=== PATIENT | female | born 1955 | race Caucasian/White ===

== ENCOUNTER 2023-04-25 10:49 | Outpatient (OUT) | payer MEDICARE, SELFPAY ==
--- NOTE | 2023-04-25 10:59 | ECG_ITS ---
[facility] Test Date: 2023-04-25 Pat Name: KARMEN WORKMAN Department: Room: - Gender: Female [employer] Sales [employer]: : 1955 Requested By: JOB GATES Order Number: [id number] Reading MD: HENRY MURCIA Measurements Intervals Paia Rate: 82 P: 43 MO: 216 QRS: 8 QRSD: 100 T: 51 QT: 408 QTc: 478 Interpretive Statements SINUS RHYTHM WITH FIRST DEGREE AV BLOCK WITH OCCASIONAL ECTOPIC PREMATURE COMPLEXES WARNING: DATA QUALITY MAY AFFECT INTERPRETATION No previous ECG available for comparison Electronically Signed On 04-25-2023 23:26:45 EST by HENRY MURCIA
[2023-04-25 12:26] LABS: Anion Gap 15.8; BUN Creatinine Ratio 16.7; Calcium 9.6 mg/dL (8.5-10.1); Carbon Dioxide 26.4 mmol/L (21.0-32.0); Chloride 100 mmol/L (98-107); Estimated GFR (African America >60 (>=60); Estimated GFR (Non-African Ame >60 (>=60); Glucose 242 mg/dL (74-106); Potassium 4.2 mmol/L (3.5-5.1); Sodium 138 mmol/L (136-145)
== END 2023-04-25 10:50 | disposition home or self-care (01) ==
PROVIDERS: Visit Provider Obstetrics & Gynecology
DX: Z01.810 Encounter for preprocedural cardiovascular examination (principal); Z01.812 Encounter for preprocedural laboratory examination; R93.89 Abnormal findings on diagnostic imaging of other specified body structures
CPT/HCPCS: 80048; 93005

== ENCOUNTER 2023-05-05 06:30 | Day surgery (SDC) | payer MEDICARE, SELFPAY ==
[2023-04-25 11:37] VITALS: BP 130/80; PULSE 83; RESP 20; TEMP 36.2; O2SAT 98; BMI 35.4
[2023-05-05] VITALS (9 sets, daily range): BP systolic 114–141; BP diastolic 60–79; PULSE 77–89; RESP 12–19; TEMP 35.4–36.7; O2SAT 95–99
--- OUTSIDE RECORDS SUMMARY | 2023-05-05 06:34 | XMS_ITS | CCD ---
Author Name Unknown Address [address] [place] [address] Organization [facility] Care Team Providers Care Java Software Developer Name Role Phone Keri Fields Unavailable JOB CHE Attending Unavailable JOB CHE Attending Unavailable KAYE HUNTER Attending Unavailable SHELDON RAHMAN Attending Unavailable SHELDON RAHMAN Referring Unavailable SHELDON RAHMAN Attending Unavailable Kaye Hunter DO Unavailable Kaye Hunter DO Primary Care Provider Medications Current Medications Medication Drug Class(es) Dates Sig (Normalized) Sig (Original) aspirin 81 mg chewable tablet (3 sources) Platelet Aggregation Inhibitor, Nonsteroidal Anti-inflammatory Drug aspirin 81 MG chewable tablet 1 (one) time each day at the same time. 0 Active atorvastatin 40 mg oral tablet (5 sources) HMG-CoA Reductase Inhibitor Start: 12-29-2022 atorvastatin (Lipitor) 40 MG tablet Indications: Mixed hyperlipidemia (CMS/HCC) TAKE 1 TABLET DAILY 90 tablet 3 12/29/2022 Active Atorvastatin Dread cium Active cephalexin 500 mg oral tablet (2 sources) Cephalosporin Antibacterial Start: 03-15-2021 take 1 tablet by mouth every twelve hours Cephalexin 500 MG 1 tablet Orally every 12 hrs for 10 day(s) Mar, Active cholecalciferol 0.05 mg oral tablet (3 sources) Vitamin D take 1 tablet by mouth in the morning cholecalciferol (Vitamin D-3) 50 MCG (1999 UT) tablet Take 2,000 Units by mouth in the morning. 0 Active clobetasol propionate 0.5 mg/ml topical cream (3 sources) Corticosteroid Start: 03-02-2023 clobetasol (Temovate) 0.05 % cream Indications: Vaginal irritation Apply topically 2 (two) times a day Use BID for 7 days and then every day for 1 week and then prn as needed 15 g 1 03/02/2023 Active Continuous Blood Gluc Consumer Loan Underwriter (FreeStyle Carlyn 14 Day [place]) device (3 sources) Start: 01-25-2023 End: 01-25-2024 Continuous Blood Gluc Consumer Loan Underwriter (FreeStyle Carlyn 14 Day [place]) device Indications: Type 2 diabetes mellitus with hyperglycemia, without long-term current use of insulin (CMS/HCC) 1 Device 6 (six) times a day. 1 each 1 01/25/2023 01/25/2024 Active Continuous Blood Gluc Sensor (FreeStyle Carlyn 14 Day Sensor) misc (3 sources) Start: 01-25-2023 End: 04-19-2023 Continuous Blood Gluc Sensor (FreeStyle Carlyn 14 Day Sensor) misc Indications: Type 2 diabetes mellitus with hyperglycemia, without long-term current use of insulin (CMS/HCC) 1 Device every 14 (fourteen) days. 6 each 3 01/25/2023 04/19/2023 Active 0.5 ml dulaglutide 1.5 mg/ml auto-injector (5 sources) GLP-1 Receptor Agonist inject 0.75 mg by subcutaneous injection every week dulaglutide (Trulicity) 0.75 MG/0.5ML solution pen-injector Inject 0.75 mg under the skin 1 (one) time per week. 0 Active Trulicity Active empagliflozin 25 mg oral tablet (3 sources) Sodium-Glucose Cotransporter 2 Inhibitor Start: 01-25-2023 End: 01-25-2024 take 1 tablet by mouth once daily empagliflozin (Jardiance) 25 MG Indications: Type 2 diabetes mellitus with hyperglycemia, without long-term current use of insulin (CMS/HCC) Take 1 tablet (25 mg) by mouth 1 (one) time each day at the same time. 100 tablet 3 01/25/2023 01/25/2024 Active empagliflozin / Linagliptin (2 sources) Dipeptidyl Peptidase 4 Inhibitor, Sodium-Glucose Cotransporter 2 Inhibitor Glyxambi Active glimepiride 4 mg oral tablet (5 sources) Sulfonylurea Start: 07-28-2022 glimepiride (Amaryl) 4 MG tablet Indications: Diabetes mellitus due to underlying condition with hyperglycemia, unspecified whether petroleum terminal plant operator insulin use ([facility]) TAKE 1 TABLET TWICE A DAY 180 tablet 3 07/28/2022 Active Glimepiride Acti ve hydroCHLOROthiazide 12.5 mg / telmisartan 40 mg oral tablet (3 sources) Thiazide Diuretic, Angiotensin 2 Receptor Dk Start: 01-13-2023 telmisartan-hydroCHLOROthiaz shirley (MIcarDIS HCT) 40-12.5 MG tablet Indications: Primary hypertension ([facility]) TAKE 1 TABLET DAILY 90 tablet 3 01/13/2023 Active metFORMIN hydrochloride 1000 mg oral tablet (5 sources) Biguanide Start: 08-16-2022 metFORMIN (Glucophage) 1000 MG tablet Indications: Type 2 diabetes mellitus with hyperglycemia, without long-term current use of insulin ([facility]) TAKE 1 TABLET TWICE A DAY 180 tablet 3 08/16/2022 Active metFORMIN HCl Ac tive Multiple Vitamin (multivitamin) tablet (3 sources) take 1 tablet by mouth in the morning Multiple Vitamin (multivitamin) tablet Take 1 tablet by mouth in the morning. 0 Active saccharomyces boulardii 250 mg oral capsule (3 sources) take 1 capsule by mouth in the morning saccharomyces boulardii (Florastor) 250 MG capsule Take 250 mg by mouth in the morning and 250 mg before bedtime. 0 Active semaglutide 7 mg oral tablet (4 sources) Start: 06-04-19 23 End: 01-25-20 24 take 1 tablet by mouth before mealtime semaglutide (Rybelsus) 7 MG tablet Indications: Type 2 diabetes mellitus with hyperglycemia, without long-term current use of insulin ([facility]) Take 1 tablet (7 mg) by mouth in the morning. Take before meals. 90 tablet 3 01/25/2023 01/25/2024 Active sertraline 100 mg oral tablet (6 sources) Serotonin Reuptake Inhibitor Start: 04-13-19 sertraline (Zoloft) 100 MG tablet Indications: Anxiety TAKE 1 TABLET DAILY 90 tablet 3 04/13/2023 Active End: 04-13-2023 take 1 tablet by mouth in the morning sertraline (Zoloft) 100 MG tablet Take 1 tablet by mouth in the morning. 0 04/13/2023 Discontinued Sertraline HCl A ctive Telmisartan-HCTZ (2 sources) Telmisartan-HCTZ Active Completed/Discontinued Medications Medication Drug Class(es) Dates Sig (Normalized) Sig (Original) ALPRAZolam 1 mg oral tablet (1 source) Benzodiazepine Start: 02-09-2023 End: 04-12-2023 take 1 tablet by mouth once ALPRAZolam (Xanax) 1 MG tablet Indications: Anxiety, generalized (CMS/HCC) Take 1 tablet (1 mg) by mouth 1 (one) time for 1 dose Please take medication 1 hour before procedure 1 tablet 0 02/09/2023 04/12/2023 Discontinued Problems Active Problems Problem Classification Problem Date Documented Date Episodic/Chronic Anxiety disorders (4 sources) Anxiety; Translations: [Anxiety disorder, unspecified] Onset: 01-25-2023 01-25-2023 Chronic Cataract (3 sources) Bilateral age-related nuclear cataracts; Translations: [Age-related nuclear cataract, bilateral] Onset: 01-25-2023 01-25-2023 Chronic Diabetes mellitus with complications (7 sources) Type 2 diabetes mellitus; Translations: [Type 2 diabetes mellitus with diabetic neuropathy, unspecified] Onset: 01-25-2023 01-25-2023 Chronic Disorders of lipid metabolism (3 sources) Mixed hyperlipidemia; Translations: [Mixed hyperlipidemia] Onset: 01-25-2023 01-25-2023 Chronic Esophageal disorders (3 sources) Gastroesophageal reflux disease; Translations: [Gastro-esophageal reflux disease without esophagitis] Onset: 01-25-2023 01-25-2023 Chronic Essential hypertension (3 sources) Essential hypertension; Translations: [Essential (primary) hypertension] Onset: 01-25-2023 01-25-2023 Chronic Immunity disorders (3 sources) Secondary immune deficiency disorder; Translations: [Immunodeficiency due to conditions classified elsewhere] Onset: 01-25-2023 01-25-2023 Chronic Menopausal disorders (4 sources) Postmenopausal bleeding; Translations: [Postmenopausal bleeding] Onset: 03-24-2023 04-12-2023 Chronic Mood disorders (3 sources) Recurrent major depression in partial remission; Translations: [Major depressive disorder, recurrent, in partial remission] Onset: 01-25-2023 01-25-2023 Chronic Nutritional deficiencies (3 sources) Vitamin D deficiency; Translations: [Vitamin D deficiency, unspecified] Onset: 01-25-2023 01-25-2023 Chronic Other female genital disorders (3 sources) Simple endometrial glandular hyperplasia without atypia; Translations: [Benign endometrial hyperplasia] Onset: 03-24-2023 03-24-2023 Chronic Other female genital disorders (3 sources) Polyp of cervix; Translations: [Polyp of cervix uteri] Onset: 03-24-2023 03-24-2023 Episodic Other nervous system disorders (3 sources) Peripheral nerve disease ; Translations: [Polyneuropathy, unspecified] Onset: 01-25-2023 01-25-2023 Chronic Other nutritional; endocrine; and metabolic disorders (3 sources) Metabolic syndrome X; Translations: [Metabolic syndrome] Onset: 01-25-2023 01-25-2023 Chronic Other nutritional; endocrine; and metabolic disorders (3 sources) Morbid obesity; Translations: [Morbid (severe) obesity due to excess calories] Onset: 01-25-2023 01-25-2023 Chronic Other screening for suspected conditions (not mental disorders or infectious disease) (4 sources) Endometrium thickened; Translations: [Abnormal findings on diagnostic imaging of other specified body structures] Onset: 03-24-2023 04-12-2023 Chronic Other skin disorders (3 sources) Alopecia; Translations: [Nonscarring hair loss, unspecified] Onset: 01-25-2023 01-25-2023 Episodic Other skin disorders (3 sources) Callosity; Translations: [Corns and callosities] Onset: 01-25-2023 01-25-2023 Episodic Residual codes; unclassified (3 sources) Obstructive sleep apnea syndrome; Translations: [Obstructive sleep apnea (adult) (pediatric)] Onset: 01-25-2023 01-25-2023 Chronic Residual codes; unclassified (3 sources) Patient non-compliant - refused intervention / support ; Translations: [Noncompliance by refusing intervention or support] Onset: 01-25-2023 01-25-2023 Episodic Residual codes; unclassified (3 sources) Noncompliance with dietary regimen; Translations: [Noncompliance of patient with dietary regimen] Onset: 01-25-2023 01-25-2023 Episodic Past or Other Problems Problem Classification Problem Date Documented Da te Episodic/Chronic Genitourinary symptoms and ill-defined conditions (1 source) Dysuria Onset: 03-15-2021 Resolved: 03-15-2021 Episodic Urinary tract infections (1 source) Acute cystitis with hematuria Onset: 03-15-2021 Resolved: 03-15-2021 Episodic Results Test Name Value Interpretation Reference Range Facility Cytology Cervical or vaginal smear or scraping [facility]on 02-08-2023 [facility] PELVIS TRANSVAGINALon US PELVIS TRANSVAGINAL EXAM: US PELVIS TRANSVAGINAL ] CLINICAL INDICATION: post menapausal bleeding. COMPARISON: None. TECHNIQUE: Transvaginal real-time grayscale sonographic images were obtained. Color Doppler was also performed. FINDINGS: The uterus is 5.0 x 5.2 x 3.3 cm. It is anteverted. The endometrial stripe is 8 mm thick. It contains an echogenic 6 x 3 x 4 mm focus and a trace amount of fluid. The right ovary is 1.4 x 1.2 x 1.3. It shows normal blood flow. The left ovary is 1.9 x 1.3 x 1.2. It shows normal blood flow. No significant pelvic free fluid. IMPRESSION: 8 mm endometrium, thickened for postmenopausal. It also contains a 6 mm possible polyp, but malignancy is not excluded. Gynecology referral recommended for potential biopsy. ELECTRONICALLY SIGNED BY: Dejon Vásquez MD Normal Not Available Urinalysis - DIPSTICKon Appearance (U) cloudy [facility] Other Bilirubin Ql (U) Negative [facility] Other Color (U) yellow [facility] Other Glucose Ql (U) Negative [facility] Other Hemoglobin Ql (U) [employer] Other Ketones Ql (U) Negative [facility] Other Leukocyte esterase Test strip Ql (U) [employer] Other Nitrite Ql (U) Negative [facility] Other pH (U) 6.0 [pH] [facility] Other Protein Ql (U) Negative [facility] Other Specific gravity (U) [Rel density] 1.020 [facility] Other Urobilinogen (U) [Mass/Vol] 0.2 mg/dL [facility] Other Urinalysis - DIPSTICK [facility] Other Urine Cultureon 03-15-2021 Urine Culture >100,000 [facility] Other Urine Culture <16 [facility] Other Urine Culture >16 [facility] Other Urine Culture <4 [facility] Other Urine Culture <2 [facility] Other Urine Culture <1 [facility] Other Urine Culture <0.5 [facility] Other Urine Culture <32 [facility] Other Urine Culture >8 [facility] Other Urine Culture <2/38 [facility] Other Bacteria identified Cx Nom (U) Reason for Exam Dysuria Urine Reason for Exam: Dysuria : Urine ORGANISM: Escherichia coli (O:ESCCOL) Wilcox Count >100,000 Aerobic SURYA Charge (NUC86) ------ SUSCEPTIBILITY ----- ORGANISM: O:ESCCOL ANTIBIOTIC INTERPRETATION SURYA Amikacin S <16 Ampicillin R >16 Ampicillin/Sulbacta m S <8/4 Aztreonam S <4 Cefazolin S <2 Cefepime S <2 Ceftazidime S <1 Ceftazidime/Avibact am S <8 Ceftriaxone S <1 Ciprofloxacin S <1 Ertapenem S <0.5 Gentamicin S <4 Levofloxacin S <2 Meropenem S <1 Nitrofurantoin S <32 Piperacillin/Tazoba ctam S <16 Tetracycline R >8 Tigecycline S <2 Tobramycin S <4 Trimethoprim/Sulfam ethoxazole S <2/38 S = SUSCEPTIBLE I = INTERMEDIATE R = RESISTANT BLANK = DATA NOT AVAILABLE, OR DRUG NOT ADVISABLE OR TESTED R* = RESISTANCE DUE TO EXTENDED SPECTRUM BETA-LACTAMASES ESBL = EXTENDED SPECTRUM BETA-LACTAMASE TFG = THYMIDINE-DEPENDENT STRAIN HU = BETA-LACTAMASE POSITIVE IB = INDUCIBLE BETA-LACTAMASE. APPEARS IN PLACE OF 'S' WITH SPECIES KNOWN TO POSSESS INDUCIBLE BETA-LACTAMASES. POTENTIALLY THEY MAY BECOME RESISTANT TO ALL B-LACTAM DRUGS. PERFORMED BY: [place] [address] PATHOLOGIST HIGH SCHOOL TUTOR MAGUI HODGES M.D. [facility] Comment on above: Performed By: #### C UU #### [address] Vital Signs Date Time Vital Sign Value Performing Clinician Facility 04-12-2023 13:47-0500 Body mass index (BMI) [Ratio] 33.66 kg/m2 Application Security DO Work Phone: [facility] 04-12-2023 13:47-0500 Body weight 100.43 kg Job Chinedu DO Work Phone: [facility] 04-12-2023 13:47-0500 Diastolic blood pressure 68 mm[Hg] Job Chinedu DO Work Phone: [facility] 04-12-2023 13:47-0500 Systolic blood pressure 100 mm[Hg] Job Chinedu DO Work Phone: [facility] 03-15-2021 10:10-0500 Body height 168.91 cm Keri Diamond Other [facility] Other 03-15-2021 10:10-0500 Body mass index (BMI) [Ratio] 39.74 kg/m2 Keri Ginty Other [facility] Other 03-15-2021 10:10-0500 Body temperature 98.4 [degF] Keri Ginty Other [facility] Other 03-15-2021 10:10-0500 Body weight 113.4 kg Keri Ginty Other [facility] Other 03-15-2021 10:10-0500 Diastolic blood pressure 69 mm[Hg] Keri Ginty Other [facility] Other 03-15-2021 10:10-0500 Respiratory rate 18 /min Keri Ginty Other [facility] Other 03-15-2021 10:10-0500 SaO2% (BldA) [Mass fraction] 98 % Keri Ginty Other [facility] Other 03-15-2021 10:10-0500 Systolic blood pressure 133 mm[Hg] Keri Ginty Other [facility] Other Encounters Encounter Date Encounter Type Care Provider Facility Start: 04-16-2023 Orders Only Adele cordova VERIFICATION SPECIALIST Work Phone: [facility] Comment on above: Type 2 diabetes carolyne itus with diabetic neuropathy, without long-term current use of insulin ([facility]) (Primary Dx) Start: 04-13-2023 Refill Kayecruz Hunter DO Work Phone: [facility] Comment on above: Anxiety (Primary Dx) Start: 04-12-2023 End: 04-12-2023 ambulatory JOB CHINEDU Not Available Start: 04-12-2023 End: 04-12-2023 Office outpatient visit 15 minutes Job Chinedu DO Work Phone: [facility] Comment on above: Pre-op evaluation; Endometrial thickening on ultrasound; Post-menopausal bleeding Start: 04-12-2023 End: 04-12-2023 Preprocedural examination done Job Che DO Work Phone: [facility] Start: 03-24-2023 End: 03-24-2023 ambulatory JOB CHE Not Available Start: 02-23-2023 End: 02-24-2023 ambulatory SHELDON RAHMAN Not Available Start: 02-07-2023 End: 02-08-2023 ambulatory SHELDON RAHMAN Not Available Start: 02-07-2023 End: 02-08-2023 ambulatory SHELDON HOWARDO Not Available Start: 01-25-2023 End: 01-25-2023 ambulatory KAYE HUNTER Not Available Start: 03-18-2021 End: 03-18-2021 ambulatory Keri Ginty Other [facility] Other Start: 03-18-2021 Telephone encounter Keri Ginty [facility] Start: 03-15-2021 End: 03-15-2021 ambulatory Keri Ginty Other [facility] Other Start: 03-15-2021 Office outpatient vi sit 15 minutes Keri Ginty [facility] Procedures Date Procedure Procedure Detail Performing Clinician Start: 02-08-2023 Cytp cerv/vag auto t hin layer prep mnl screen Sheldon Rahman CNM Work Phone: Start: 03-15-2021 Piperacillin/tazobactam Keri Ginty Other Plan of Treatment Date Care Activity Detail Author Start: 02-08-2024 Medicare Annual Well ness (AWV) Medicare Annual Wellness (AWV) [facility] Start: 06-06-2023 End: 06-06-2023 Patient encounter procedure 06/06/2023 8:00 AM EDT Office Visit [facility] [address] [place] [address] Adele Phillips NP [address] [place] [address] [facility] Start: 04-16-2023 End: 04-16-2024 Amylase [Enzymatic activity/volume] in Serum or Plasma Amylase Lab Routine Type 2 diabetes mellitus with diabetic neuropathy, without long-term current use of insulin ([facility]) Expected: 04/16/2023 (Approximate), Expires: 04/16/2024 [facility] Comment on above: Expected: 04/16/2023 (Approximate), Expires: 04/16/2024 Start: 04-16-2023 End: 04-16-2024 Comprehensive metabolic 2000 panel - Serum or Plasma Comprehensive metabolic panel Lab Routine Type 2 diabetes mellitus with diabetic neuropathy, without long-term current use of insulin ([facility]) Expected: 04/16/2023 (Approximate), Expires: 04/16/2024 [facility] Work Phone: Comment on above: Expected: 04/16/2023 (Approximate), Expires: 04/16/2024 Start: 04-16-2023 End: 04-16-2024 Hemoglobin A1c measurement [facility] Comment on above: Expected: 04/16/2023 (Approximate), Expires: 04/16/2024 Start: 04-16-2023 End: 04-16-2024 Lipase [Enzymatic activity/volume] in Serum or Plasma Lipase Lab Routine Type 2 diabetes mellitus with diabetic neuropathy, without long-term current use of insulin ([facility]) Expected: 04/16/2023 (Approximate), Expires: 04/16/2024 [facility] Comment on above: Expected: 04/16/2023 (Approximate), Expires: 04/16/2024 Start: 06-05-2020 Glaucoma screening Diabetes: R etinopathy Screening [facility] Start: 06-16-2019 Urine screening for protein Diabetes: Urine Protein Screening [facility] Start: 1997 Screening for malign ant neoplasm of breast Mammogram [facility] Start: 1957 Screening for malign ant neoplasm of colon [facility] Immunizations Immunization Date Immunization Notes Care Provider Anna weldon 12-24-2022 Influenza, High-dose Seasonal, Quadrivalent, Preservative Free Job Che DO Work Phone: [facility] 12-24-2022 Pneumococcal Conjuga te PCV 20 Job Chinedu DO Work Phone: [facility] 12-24-2022 RSV, recombinant, pr otein subunit RSVpreF, adjuvant reconstitu, 120mcg/0.5mL, PF (Arexvy) Job Chinedu DO Work Phone: [facility] 12-05-2021 Seasonal, quadrivale nt, recombinant, injectable influenza vaccine, preservative free Job Chinedu DO Work Phone: [facility] 01-13-2021 Seasonal, quadrivale nt, recombinant, injectable influenza vaccine, preservative free Job Chinedu DO Work Phone: [facility] 05-05-2019 zoster vaccine recombinant C orey Chinedu DO Work Phone: [facility] 12-20-2018 seasonal influenza, intradermal, preservative free Job Chinedu DO Work Phone: [facility] 11-29-2018 zoster vaccine recombinant C orey Chinedu DO Work Phone: [facility] 01-17-2017 seasonal influenza, intradermal, preservative free Job Chinedu DO Work Phone: [facility] 02-23-2016 influenza, injectabl e, quadrivalent, contains preservative Job Chinedu DO Work Phone: [facility] 01-22-2015 pneumococcal conjuga te vaccine, 13 valent Job Chinedu DO Work Phone: [facility] 01-18-2014 tetanus and diphther ia toxoids, adsorbed, preservative free, for adult use (5 Lf of tetanus toxoid and 2 Lf of diphtheria toxoid) Job Chinedu DO Work Phone: [facility] 03-07-2008 pneumococcal polysaccharide vaccine, 23 valent Job Chinedu DO Work Phone: [facility] Payers Date Payer Category Payer Medicare AETNA MEDICARE A DVANTAGE AETNA MEDICARE REPLACEMENT [id number] 2022-Present [address] [place] [address] [id number] 2022 Medicare [id number] 1955 Unknown [id number] 1957 Unknown [id number] 1957 Unknown [id number] 1957 Unknown [id number] 1957 Unknown [id number] 1957 Unknown [id number] Private Health Insurance [id number] Social History Date Type Detail Facility Unknown if ever smoked [facility] Other Start: 01-23-2023 End: 01-25-2023 Sex Assigned At [facility] Start: 01-25-2023 Tobacco smoking status COIS Never smoked tobacco [facility] Start: 01-25-2023 Tobacco use and exposure Smokeless tobacco non-user [facility] Start: 04-12-2023 Alcohol intake Current drinker of alcohol (finding) [facility] Start: 01-23-2023 End: 01-25-2023 History of Social function [facility] Within the last year , have you been afraid of your partner or ex-partner? No [facility] Do you belong to any clubs or organizations such as anabaptism groups, unions, fraternal or athletic groups, or school groups? Yes [facility] Are you now , , , , never or living with a partner? [facility] How often to you hav e a drink containing alcohol? Never [facility] How many standard dr inks containing alcohol do you have on a typical day? Patient does not drink [facility] How hard is it for y ou to pay for the very basics like food, housing, medical care, and heating Not very hard [facility] Do you feel stress - tense, restless, nervous, or anxious, or unable to sleep at night because your mind is troubled all the time - these days [OSQ] Not at all [facility] (I/We) worried wheth er (my/our) food would run out before (I/we) got money to buy more. Never true [facility] Start: 01-23-2023 Alcohol Comment caffeine: 1-2 cups per day [facility] Start: 1955 Sex Assigned At Female [facility] Start: 01-22-2023 Gender identity Identifies as female gender (finding) [facility] Start: 01-22-2023 Sexual orientation Heterosexual (finding) [facility] History of Present illness Narrative 04-16-2023 Adele Phillips NP - 04/16/2023 10:02 AM EST Note Date & Type Note Facility 04-16-2023 History of Presen t illness Narrative Lab orders placed and endocronology referral placed per patient's request. documented in this encounter [facility] History of Present illness Narrative 04-12-2023 Sara Hamlin LPN - 04/12/2023 1:40 PM EST Note Date & Type Note Facility 04-12-2023 History of Presen t illness Narrative Reason for Appointment: Patient ID: Charu Iyer is a 68 y.o. female who presents for Pre-op Visit Patient presents today for a Pre Op appointment. Patient is scheduled to undergo D&C Hysteroscopy, possible Myosure on 05/05/[address] Che at [facility]. Current Medications: has a current medication list which includes the following prescription(s): aspirin, atorvastatin, cholecalciferol, clobetasol, freestyle carlyn 14 day reader, freestyle carlyn 14 day sensor, trulicity, empagliflozin, glimepiride, metformin, multivitamin, saccharomyces boulardii, semaglutide, sertraline, and telmisartan-hydrochlorothiazide. Medical History: Active Ambulatory Problems Diagnosis Date Noted Age-related nuclear cataract of both eyes 01/25/2023 Alopecia 01/25/2023 Anxiety 01/25/2023 Callus 01/25/2023 Essential hypertension ([facility]) 01/25/2023 Gastroesophageal reflux disease 01/25/2023 Immunodeficiency due to conditions classified elsewhere ([facility]) 01/25/2023 Metabolic syndrome 01/25/2023 Mixed hyperlipidemia ([facility]) 01/25/2023 Morbid obesity due to excess calories ([facility]) 01/25/2023 Noncompliance by refusing intervention or support 01/25/2023 Noncompliance of patient with dietary regimen 01/25/2023 Obstructive sleep apnea 01/25/2023 Peripheral neuropathy 01/25/2023 Recurrent major depressive disorder, in partial remission (HCC) ([facility]) 01/25/2023 Type 2 diabetes mellitus with diabetic neuropathy, without long-term current use of insulin ([facility]) 01/25/2023 Type 2 diabetes mellitus with hyperglycemia ([facility]) 01/25/2023 Vitamin D deficiency 01/25/2023 Endometrial hyperplasia without atypia, simple 03/24/2023 Endometrial thickening on ultrasound 03/24/2023 Post-menopausal bleeding 03/24/2023 Cervical polyp 03/24/2023 Resolved Ambulatory Problems Diagnosis Date Noted No Resolved Ambulatory Problems Past Medical History: Diagnosis Date Basal cell carcinoma of nose Bronchitis Cataract Chronic laryngotracheitis Chronic tracheobronchitis ([facility]) Depression with anxiety Diabetes mellitus, type 2 (CMS/HCC) GERD (gastroesophageal reflux disease) Hyperlipidemia, mixed (CMS/HCC) Hypertension (CMS/HCC) Lumbar disc disease Microalbuminuria Mononeuropathy Morbid obesity ([facility]) Urinary tract infection Family History Problem Relation Name Age of Onset Heart disease Mother Tamy Orlando Alcohol abuse Father Toi Orlando Glaucoma Father Toi Orlando Lymphoma Father Toi [place] Cancer Father Toi Orlando Other (bladder cancer) Sister Breast cancer Sister Hypothyroidism Sister Stroke Maternal Grandmother Diane Penn Social History Tobacco Use Smoking status: Never Smokeless tobacco: Never Substance Use Topics Alcohol use: Yes Comment: caffeine: 1-2 cups per day Drug use: Never Past Surgical History: Procedure Laterality Date CHOLECYSTECTOMY 2002 Lap Christine LUMBAR DISCECTOMY 1986 OTHER SURGICAL HISTORY 05/14/2015 [facility] chemosurgical excision of skin, nose, Dr. Castro, basal cell SPINE SURGERY 1985 - disk removed L5 TONSILLECTOMY 1968 No Known Allergies Review of Systems: Review of Systems Constitutional: Negative. HENT: Negative. Eyes: Negative. Respiratory: Negative. Cardiovascular: Negative. Gastrointestinal: Negative. Genitourinary: Positive for menstrual problem. Musculoskeletal: Negative. Skin: Negative. Neurological: Negative. All other systems reviewed and are negative. Hematological: Negative. Endocrine: Negative. Allergic/Immunologic: Negative. Objective Physical Exam Constitutional: Appearance: Normal appearance. She is well-developed. Cardiovascular: Rate and Rhythm: Normal rate and regular rhythm. Pulmonary: Effort: Pulmonary effort is normal. Breath sounds: Normal breath sounds. Abdominal: General: Bowel sounds are normal. There is no distension. Palpations: Abdomen is soft. Tenderness: There is no abdominal tenderness. There is no guarding or rebound. Musculoskeletal: General: No swelling. Normal range of motion. Right lower leg: No edema. Left lower leg: No edema. Neurological: Mental Status: She is alert and oriented to person, place, and time. Skin: General: Skin is warm and dry. Psychiatric: Mood and Affect: Mood normal. Behavior: Behavior normal. Vitals and nursing note reviewed. Exam conducted with a machinery rigger present. Vitals: Estimated body mass index is 33.66 kg/m as calculated from the following: Height as of 02/07/23: 5' 8 . Weight as of this encounter: 221 lb 6.4 oz. BP: 100/68 No LMP recorded. Patient is postmenopausal. Assessment/Plan Encounter Diagnoses Name Primary? Pre-op evaluation Endometrial thickening on ultrasound Post-menopausal bleeding Pre Op: Patient is doing well but has complaints of postmenopausal bleeding and thickening of endometrium on ultrasound. I have discussed conservative management vs. surgical management with the patient in detail and patient desires surgical management at this time. Patient will undergo D&C Hysteroscopy, possible Myosure on 05/05/23. Surgical consents were signed, mmc was reviewed, and patient is to proceed to [facility] OR. Follow Up: Patient is to follow up between 1-2 weeks post operative to assess proper healing and recovery from procedure. Documented by: Sara Hamlin LPN on behalf of Job Che DO documented in this encounter [facility] Evaluation note 03-15-2021 Note Date & Type Note Facility 03-15-2021 Evaluation note Encounter Date Diagnosis Assessment Notes Mar, Dysuria (ICD-10 - R30.0) Mar, Acute cystitis with hematuria (ICD-10 - N30.01) Discussed diagnosis and dipstick findings with patient. Will treat today for UTI. Reviewed recent antibiotic use and allergies. Advised to take antibiotic as directed, finish entire course, take with food and plenty of water. Advised patient that culture was sent today and we will call her with results in 2-5 days. Instructed patient to push fluids. If symptoms do not improve in next 48 hours, follow up with PCP. Immediate evaluation for back pain, fevers, n/v, or if any new or concerning symptoms arise. Patient verbalizes understanding and is agreeable with treatment plan [facility] Other Evaluation note Note Date & Type Note Facility Evaluation note No Information [facility] Other Evaluation note Note Date & Type Note Facility Evaluation note Diagnosis Pre-op evaluation Endometrial thickening on ultrasound Post-menopausal bleeding Postmenopausal bleeding documented in this encounter [facility] Evaluation note Note Date & Type Note Facility Evaluation note Diagnosis Anxiety- Primary Anxiety state, unspecified documented in this encounter [facility] Evaluation note Note Date & Type Note Facility Evaluation note Diagnosis Type 2 diabetes mellitus with diabetic neuropathy, without long-term current use of insulin ([facility])- Primary documented in this encounter [facility] Healthcare History general Narrative - Reported Note Date & Type Note Facility History general Narrative - Reported Type Medical History anxiety Medical History chronic depression Medical History hypercholesterolemia Medical History hypertension Medical History diabetes mallitus Surgical History tonsillectomy and adenoidectomy Surgical History cholecystectomy Surgical History back surgery Hospitalization History see above [facility] Other Reason for referral (narrative) Consultation (Urgent) - Pending Review Note Date & Type Note Facility Reason for referral (narrati ve) Specialty Diagnoses / Procedures Referred By Contac t Referred To Contact Endocrinology Diagnoses Type 2 diabetes mellitus with diabetic neuropathy, without long-term current use of insulin ([facility]) Procedures [place] OFFICE/OUTPATIENT NEW HIGH MDM 60 MINUTES Adele Phillisp NP [address] [place] [address] Barron Robb MD [address] [place] [address] Referral ID Status Reason Start Date Expiration Date Visits Requested Visits Authorized [id number] Pending Review Specialty Services Required 04/16/2023 10/13/2023 1 1 [facility] Summary Purpose Family History No Family History Records FoundNo Family History Records Found Advance Directives No Advanced Directives Records FoundNo Advanced Directives Records Found Additional Source Comments INFORMATION SOURCE (unrecogn ized section and content) DATE CREATED AUTHOR 04/29/2021 [facility] DATE CREATED AUTHOR AUTHOR'S ORGANIZ ATION 04/13/2023 [facility] Special[facility] EPIC REASON FOR VISIT (unrecogniz ed section and content) Reason Comments Med Refill Reason Comments Pre-op Visit [facility] Care Teams (unrecognized sec tion and content) Java Software Developer Relationship Specialty Start Date End Date Kaye Hunter DO [address] [place] [address] PCP - [employer] 05/05/22 Kaye Hunter DO [address] [place] [address] PCP - General Family Medicine 07/13/22 Java Software Developer Relationship Specialty Start Date End Date Kaye Hunter DO [address] [place] [address] PCP - [employer] 05/05/22 Kaye Hunter DO [address], [place] [phone] PCP - General Family Medicine 07/13/22 Java Software Developer Relationship Specialty Start Date End Date Kaye HunterDO [address] [place], [place] [id number] PCP - General Family Medicine 07/13/22 FOR RECORDS PERTAINING TO PATIENTS WHO ARE OR HAVE BEEN ENROLLED IN A CHEMICAL DEPENDENCY/SUBSTANCEABUSE PROGRAM, SOME INFORMATION MAY BE OMITTED. This clinical summary was aggregated from multiple sources. Caution should be exercised in using it in the provision of clinical care. This summary normalizes information from multiple sources, and as a consequence, information in this document may materially change the coding, format and clinical context of patient data. In addition, data may be omitted in some cases. CLINICAL DECISIONS SHOULD BE BASED ON THE PRIMARY CLINICAL RECORDS. [facility]. provides no warranty or guarantee of the accuracy or completeness of information in this document.
[2023-05-05 06:49] LABS: Basophils Percent Auto 0.6 % (0.2-2.0); Eosinophils Absolute Auto 0.2 10^3/uL (0.0-0.7); Eosinophils Percent Auto 2.2 % (0.9-7.0); Hematocrit 42.2 % (36.0-48.0); Hemoglobin 14.2 g/dL (12.0-16.0); Immature Granulocytes Abs Auto 0.03 10^3/uL (0.00-0.03); Immature Granulocytes Pct Auto 0.4 % (0.0-0.5); Lymphocytes Absolute Auto 1.9 10^3/uL (1.2-3.8); Lymphocytes Percent Auto 28.2 % (20.5-60.0); Mean Corpuscular HGB Conc 33.6 g/dL (29.9-35.2); Mean Corpuscular Hemoglobin 31.6 pg (26.7-34.0); Mean Corpuscular Volume 93.8 fL (81.0-99.0); Mean Platelet Volume 10.8 fL (9.5-13.5); Monocytes Absolute Auto 0.5 10^3/uL (0.3-0.8); Monocytes Percent Auto 7.6 % (1.7-12.0); Neutrophils Absolute Auto 4.2 10^3/uL (1.4-6.5); Platelet Count 168 10^3/uL (150-450); Red Cell Distribution Width 12.5 % (11.0-15.0); White Blood Count 6.9 10^3/uL (4.0-11.0)
[2023-05-05 06:56] LABS: Glucometer 390 mg/dL (74-106)
[2023-05-05] MEDS: LACTATED RINGER'S SOLUTION 1,000 ML 50 ML IV ×2 (07:26→09:01)
[2023-05-05] MEDS: INSULIN ASPART 300 UNIT/3 ML PEN 6 UNIT SUBQ (07:30)
--- NOTE | 2023-05-05 07:36 | PC.NURSE ---
Given 6 units insulin as ordered by anesthesia
--- NOTE | 2023-05-05 08:24 | P.ON_ITS ---
Brief Operative Note Date of procedure: 05/05/23 Pre-op diagnosis: thickened endometrium, pmb Post-op diagnosis: same as pre-op Procedure: NAME OF PROCEDURE: [ D&c hysteroscopy with myosure] PROCEDURE: The patient was taken back to the Operating Room where she was prepped and draped in normal sterile fashion after being placed under general anesthesia without difficulty. She was also placed in the dorsal lithotomy position. A weighted speculum was placed in the patient?s vagina. The anterior lip of the cervix was identified and grasped with a single tooth tenaculum. The patient?s uterus was then sounded roughly to [? 8] cm. The patient was then gently dilated using Hegar dilators. The hysteroscope was passed through the patient?s cervix into the uterus. Both ostia were identified. fluffy appearing endometrium. No g ross evidence of malignancy, no gross evidence of polyps or fibroids. The myosure apparatus was placed through the scope, The myosure was engaged and endometrial curretting were removed along with endometrial polyp, The hysteroscope was then removed from the uterus. The endometrial curettings were sent out to pathology. The single tooth tenaculum was then removed from the patient's anterior lip of the cervix where excellent hemostasis was noted. All instruments were removed from the patient?s vagina. The patient tolerated the procedure well. Sponge, lap and needle counts were correct times two. The patient was taken to the Recovery Room in stable condition.Room in stable condition. Anesthesia: SHERICE Surgeon: Eric Che Estimated blood loss (mL): 5 Pathology: other (endometrial currettings) Condition: stable Disposition: PACU Urinary Catheter Management Urinary Catheter Management Urethral: Cath placed during this visit: no
[2023-05-05 08:27] LABS: Glucometer 371 mg/dL (74-106)
--- NOTE | 2023-05-05 08:37 | PC.NURSE ---
Dr Griffith is aware of post op blood sugar. No new orders at this time.
== END 2023-05-05 09:35 | disposition home or self-care (01) ==
PROVIDERS: Visit Provider Obstetrics & Gynecology
PROC: (CPT 58558; principal; 2023-05-05 07:30)
DX: R93.89 Abnormal findings on diagnostic imaging of other specified body structures (principal); N95.0 Postmenopausal bleeding; I10 Essential (primary) hypertension; E11.9 Type 2 diabetes mellitus without complications; K21.9 Gastro-esophageal reflux disease without esophagitis; E78.2 Mixed hyperlipidemia; E66.01 Morbid (severe) obesity due to excess calories; G47.33 Obstructive sleep apnea (adult) (pediatric); E11.42 Type 2 diabetes mellitus with diabetic polyneuropathy; E55.9 Vitamin D deficiency, unspecified; Z87.440 Personal history of urinary (tract) infections; Z90.49 Acquired absence of other specified parts of digestive tract; Z68.33 Body mass index [BMI] 33.0-33.9, adult; Z79.84 Long term (current) use of oral hypoglycemic drugs; Z86.16 Personal history of COVID-19
CPT/HCPCS: 58558; 36415; 82948; 85025; 88305; 99999; J1094; J2704